=== PATIENT | female | born 1985 | race African-American/Black ===

== ENCOUNTER 2023-01-09 10:15 | Emergency (ER) | payer OTHER ==
[~2023-01-09] VITALS: Ht 162.6 cm; Wt 86.2 kg
[2023-01-09] MEDS ORDERED: IBUPROFEN 800 MG TABLET PO ONE (11:45)
[2023-01-09] MEDS ORDERED: IBUP-1957 PO (11:49)
[2023-01-09] MEDS ORDERED: IBUPROFEN 800 MG TABLET ONE (11:49)
[2023-01-09 13:15] VITALS: BP 133/79; TEMP 98.2; O2SAT 97
== END 2023-01-09 13:17 | disposition home or self-care (01) ==
LOC: ER 10:15
DX: S02.2XXA Fracture of nasal bones, initial encounter for closed fracture (principal); S05.11XA Contusion of eyeball and orbital tissues, right eye, initial encounter; S60.221A Contusion of right hand, initial encounter; S20.211A Contusion of right front wall of thorax, initial encounter; R07.89 Other chest pain; Z79.1 Long term (current) use of non-steroidal anti-inflammatories (NSAID); Y04.2XXA Assault by strike against or bumped into by another person, initial encounter; Y93.89 Activity, other specified; Y92.89 Other specified places as the place of occurrence of the external cause; Y99.8 Other external cause status
CPT/HCPCS: 70450; 70486; 71045; 72125; 73080; 73130; A4663